=== PATIENT | female | born 1930 | race Caucasian/White ===

== ENCOUNTER 2017-02-04 08:45 | Emergency (ER) | payer OTHER ==
[2017-02-04 09:49] LABS: BASOPHILS % (AUTO) 1 % (0-3); EOSINOPHILS % (AUTO) 3 % (0-9); HEMATOCRIT 34 % (35-47); MEAN CORPUSCULAR HGB CONC 36.1 gm/dl (32.0-36.0); MEAN CORPUSCULAR VOLUME 93 fL (81-99); MONOCYTES % (AUTO) 10.7 % (0-12); NEUTROPHILS % (AUTO) 56.9 % (37-80)
[2017-02-04 09:56] LABS: CALCIUM 9.4 mg/dl (8.5-10.1); GLOM FILT RATE 40 mL/min (>60); POTASSIUM 3.5 mMol/L (3.5-5.1); SODIUM 142 mMol/L (136-145)
[2017-02-04 11:21] VITALS: TEMP 98
[2017-02-04 12:42] VITALS: BP 164/78; PULSE 69; RESP 18; O2SAT 97
== END 2017-02-04 14:12 | disposition home or self-care (01) | DRG 312 ==
LOC: ED 08:45
DX: R55 Syncope and collapse (principal); R53.83 Other fatigue; Z86.79 Personal history of other diseases of the circulatory system
CPT/HCPCS: 36415; 71020; 80048; 83880; 84443; 84484; 85025; 93005; 99284; 99285